=== PATIENT | male | born 1940 | race Caucasian/White ===

== ENCOUNTER 2018-02-06 12:29 | Observation (INO) | payer MEDICARE, BC ==
[2018-02-06 13:10] LABS: #Eosinphils 0.2 thou/uL (0.0-0.7); #Lymphocytes 1.3 thou/uL (1.20-3.40); #Monocytes 0.8 thou/uL (0.11-0.59); #Neutrophils 7.8 thou/uL (1.40-6.50); %Basophils 0.2 % (0.0-1.0); %Eosinophils 2.1 % (0.0-10.0); %Lymphocytes 12.4 % (21.0-51.0); %Neutrophils 77.3 % (42.0-75.0); Hemoglobin 14.6 g/dL (14.0-18.0); Mean Corpuscular HGB CONC 34.7 g/dL (32.0-36.0); Mean Corpuscular Hemoglobin 33.7 pg (27.0-31.0); Mean Corpuscular Volume 97.3 fL (78.0-98.0); Mean Platelet Volume 5.5 fL (7.4-10.4); Platelet Count 183 thou/uL (130-400); RBC Distribution Width 11.7 % (11.5-14.5); Red Blood Cell (RBC) Count 4.34 mill/uL (4.70-6.10)
[2018-02-06 13:31] LABS: ALT (SGPT) Less than 7 U/L (8-55); AST (SGOT) 15 U/L (5-34); Albumin 4.2 g/dL (3.4-4.8); Alkaline Phosphatase 98 U/L (40-150); Anion Gap 9 mmol/L (10-20); BUN (Urea Nitrogen) 21 mg/dL (8.4-25.7); Bilirubin, Total 0.7 mg/dL (0.2-1.2); Calc. Creatinine Clearance 0 mL/min (70-130); Calcium 8.9 mg/dL (7.8-10.44); Carbon Dioxide 28 mmol/L (23-31); Chloride 97 mmol/L (98-107); Estimated GFR-MDRD 57; Globulin 2.8 g/dL (2.4-3.5); Glucose 108 mg/dL (83-110); Potassium 4.4 mmol/L (3.5-5.1); Sodium 130 mmol/L (136-145)
[2018-02-06 13:36] LABS: Troponin I Less than 0.010 ng/mL (< 0.028)
--- NOTE | 2018-02-06 13:53 | RAD ---
CHEST 2 VIEWS: HISTORY: Cough. Low blood pressure. COMPARISON: Chest radiograph 2013. FINDINGS: There is a dual-lead cardiac pacer. No focal airspace consolidation, pneumothorax, or effusion. The re appears to be a thoracolumbar junction and compression deformity at either T12 or L1. IMPRESSION: 1. Further height loss of the L1 compression deformity from the 07/09/16 CT exam. 2. No acute intrathoracic abnormality. POS: [facility]
[2018-02-06 14:35] LABS: Bilirubin Negative (Negative); Blood, Urine Negative (Negative); Clarity CLEAR (Clear); Glucose, Urine (Dipstick) Negative (Negative); Leukocyte Small (Negative); Nitrite Negative (Negative); Protein, Urine (Dipstick) Negative (Neg-Trace); Urobilinogen 0.2 mg/dL (0.2-1.0)
[2018-02-06 14:36] LABS: Bacteria/HPF None Seen HPF (None Seen); Hyaline Casts/LPF 0-3 HYALINE CAST LPF (0-3 Hyaline); RBC/HPF 0-3 HPF (0-3); Squamous Epithelial 0-3 HPF (0-3); WBC/HPF 0-3 HPF (0-3)
[2018-02-06] MEDS ORDERED: Azithromycin 500 MG VIAL ONE (15:43)
[2018-02-06] MEDS ORDERED: Acetaminophen 325 MG TAB PO PRN (16:41)
[2018-02-06 17:03] VITALS: BMI 29.0
[2018-02-06] MEDS: Sodium Chloride 0.45% 1,000 ML IV SCH (18:03)
[2018-02-06] MEDS ORDERED: cloNIDine 0.1 MG TAB PO PRN (20:21)
[2018-02-06] MEDS ORDERED: hydrALAZINE 20 MG/ML VIAL SLOW IVP PRN (20:21)
[2018-02-06] MEDS: Primidone 50 MG TAB PO SCH (20:58)
[2018-02-06] MEDS: Carbidopa/Levodopa 25-100 mg Tablet PO SCH (20:59)
[2018-02-06] MEDS: Magnesium Oxide 250 MG TAB PO SCH (20:59)
[2018-02-06] MEDS: Venlafaxine HCl XR 75 MG CAP PO SCH (20:59)
[2018-02-06] MEDS ORDERED: Non-Formulary Item 1 EACH (Fluticasone/Salmeterol [Advair Diskus 250/50] 1 INH) IH SCH (21:00)
[2018-02-06] MEDS ORDERED: Atorvastatin Calcium 20 MG TAB PO SCH (21:00)
[2018-02-07] MEDS: Sodium Chloride 0.45% 1,000 ML IV SCH (04:09)
[2018-02-07 05:01] LABS: #Basophils 0.1 thou/uL (0.0-0.2); #Eosinphils 0.4 thou/uL (0.0-0.7); #Lymphocytes 1.4 thou/uL (1.20-3.40); #Monocytes 0.7 thou/uL (0.11-0.59); #Neutrophils 4.9 thou/uL (1.40-6.50); %Basophils 1.2 % (0.0-1.0); %Eosinophils 5.9 % (0.0-10.0); %Monocytes 9.9 % (0.0-10.0); %Neutrophils 64.9 % (42.0-75.0); Hemoglobin 14.4 g/dL (14.0-18.0); Mean Corpuscular HGB CONC 34.4 g/dL (32.0-36.0); Mean Corpuscular Hemoglobin 33.3 pg (27.0-31.0); Mean Platelet Volume 5.5 fL (7.4-10.4); Platelet Count 178 thou/uL (130-400); RBC Distribution Width 11.7 % (11.5-14.5); Red Blood Cell (RBC) Count 4.31 mill/uL (4.70-6.10); White Blood Cell (WBC) Count 7.5 thou/uL (4.8-10.8)
[2018-02-07 05:06] LABS: Anion Gap 10 mmol/L (10-20); BUN (Urea Nitrogen) 18 mg/dL (8.4-25.7); Calc. Creatinine Clearance 86 mL/min (70-130); Carbon Dioxide 26 mmol/L (23-31); Chloride 102 mmol/L (98-107); Estimated GFR-MDRD 76; Glucose 96 mg/dL (83-110); Potassium 4.6 mmol/L (3.5-5.1); Sodium 133 mmol/L (136-145)
[2018-02-07] MEDS ORDERED: Mometasone/Formoterol 120 PUFF INHALER INH SCH (06:30)
[2018-02-07 08:12] VITALS: BP 138/63; TEMP 98
[2018-02-07] MEDS: Primidone 50 MG TAB PO SCH (08:29)
[2018-02-07] MEDS: Venlafaxine HCl XR 75 MG CAP PO SCH (08:29)
[2018-02-07] MEDS: Magnesium Oxide 250 MG TAB PO SCH (08:29)
[2018-02-07] MEDS: Carbidopa/Levodopa 25-100 mg Tablet PO SCH (08:30)
[2018-02-07] MEDS ORDERED: ALPRAZolam 0.5 MG TAB PO PRN (08:52)
[2018-02-07] MEDS ORDERED: HYDROcodone/Acetaminophen 5/325 mg Tablet PO PRN (08:52)
[2018-02-07] MEDS ORDERED: traMADol HCl 50 MG TAB PO PRN (08:52)
[2018-02-07] MEDS ORDERED: Finasteride 5 MG TAB PO SCH (09:00)
[2018-02-07] MEDS ORDERED: MOMETASONE FUROATE EA NARE SCH (09:00)
[2018-02-07] MEDS ORDERED: Nitroglycerin 0.4 MG TAB (25 Tab Bottle) SL SCH (09:00)
[2018-02-07] MEDS ORDERED: Clopidogrel Bisulfate 75 MG TAB PO SCH (09:00)
[2018-02-07] MEDS ORDERED: Metoprolol Tartrate 25 MG TAB PO SCH (09:00)
[2018-02-07] MEDS ORDERED: Venlafaxine HCl XR 75 MG CAP PO SCH (09:00)
[2018-02-07] MEDS ORDERED: Valsartan 80 MG TAB PO SCH (09:00)
[2018-02-07] MEDS ORDERED: [UNRECOGNIZED DRUG - REMARK] EA NARE SCH (09:00)
[2018-02-07] MEDS ORDERED: Fluticasone Propionate Nasal Spray 16 gm Bottle NASAL SCH (09:00)
--- NOTE | 2018-02-07 09:00 | HP ---
CHIEF COMPLAINT: Cough. HISTORY OF PRESENT ILLNESS: This patient is a 71-year-old male who presented via the emergency depar tment complaining of a cough. Patient reports that for 3 days, he has had a cough that has been prod uctive of a thick yellow sputum. He has had no associated fevers, chills, shortness of breath, or ch est pain. He denies any ill contacts. He has had some sinus pressure and drainage. Patient present ed to his PCP, Dr. Price today. At the office, the patient's blood pressure was documented at 80/5 0. The patient was subsequently referred to the emergency department. The patient reports that he h as had some history of orthostatic hypotension for about 15 years. He states he was diagnosed with P arkinson's disease about 3 years ago. REVIEW OF SYSTEMS: Notable for poor sleep associated with cough. Some decreased hearing associated with some chronic auditory deficits. He tends toward constipation and he admits to tingling in his f eet and nocturia x2. Other than that 10-system review was negative except for those things mentioned in history of present illness. PAST MEDICAL HISTORY: Parkinson's disease, coronary artery disease, BPH, kidney stone, hypertension, hyperlipidemia, psoriasis, and depression. PAST SURGICAL HISTORY: Coronary artery bypass, pacemaker placement, and right carotid endarterectomy . FAMILY HISTORY: Notable for heart disease in both parents. Father at 63. Mother in her 8 0s. SOCIAL HISTORY: Patient quit smoking 30 years ago. Denies alcohol or drugs. He is and his would be his surrogate decision maker. He is FULL CODE. ALLERGIES: None. CURRENT MEDICATIONS: As of yet not reviewed or not obtained in medical record. PHYSICAL EXAMINATION: VITAL SIGNS: Temperature 97.9, pulse 76, respirations 20, O2 sat 100% on room air, BP 158/79. GENERAL APPEARANCE: Age appropriate male. He is in no distress. He is awake, alert, oriented, very pleasant, cooperative. HEENT: PERRL. No OP lesions. No sinus tenderness to palpation. NECK: Supple and symmetric without lymphadenopathy, JVD, or bruits. CARDIOVASCULAR: Regular rate and rhythm without murmurs. LUNGS: Clear bilaterally with exception of very minimal rales at the right base. ABDOMEN: Soft, nontender, nondistended, positive bowel sounds. EXTREMITIES: Warm and dry. IMPRESSION AND PLAN: 1. Hypotension. Patient had episode of hypotension at his physician's office. He has received some modest hydration. BP now is up at 158/79. We will continue with some hydration and monitoring the blood pressure. 2. Likely bronchitis. We will reevaluate a chest x-ray in the morning after hydration. He received a dose of Rocephin and azithromycin. We will not initiate further IV antibiotics until we obtain a chest x-ray. 3. Chronic Parkinson's disease. We will continue with his usual home medication regimen. 4. History of coronary artery disease. Again, we will continue with his usual treatments for heart disease, hypertension, hyperlipidemia.
--- NOTE | 2018-02-07 10:31 | RAD ---
CHEST PA AND LATERAL: HISTORY: A 77-year-old male with a history of cough. FINDINGS: Postop midline sternotomy and left ICD changes. Monitor leads overlie the chest. There are some inc reased linear and interstitial markings in the bases, possibly some chronic lung change or minimal barros bsegmental atelectasis, although I feel this is stable compared to the 02/06/18 study. No new conflue nt process. Stable L1 compression. IMPRESSION: Stable increased linear and interstitial changes in the lung bases probably representing some subsegm ental atelectasis or chronic change unchanged from 02/06/18. Compression changes of what appears to b e L1. POS: [facility]
--- NOTE | 2018-02-07 20:06 | DIS ---
DATE OF ADMISSION: 02/06/2018 DATE OF DISCHARGE: 02/07/2018 DISCHARGE DIAGNOSES: 1. Bronchitis. 2. Hypotension. 3. Parkinson's disease. HISTORY: This patient is a 77-year-old male with a history of Parkinson's disease and a longer histo ry of orthostatic hypotension. The patient presented to his primary care provider's office on the da y of admission with a 3-day history of productive cough with thick yellow sputum. The patient was no malgorzata to have a blood pressure at that time of 80/50. He was subsequently referred to the emergency de partment. In the emergency department, the patient's vital signs were stable and his blood pressure was in the normal range. His exam did reveal some right-sided rales; however, chest x-ray was negati ve. His sodium was slightly low at 130, but otherwise his white count was normal and the remainder o f his labs was unremarkable. HOSPITAL COURSE: The patient was placed in observation. Overnight, he was modestly hydrated. He co ntinued to have some cough which he felt was actually slightly more productive, but thinner and in hi s mind somewhat of an improvement. A repeat chest x-ray only revealed some stable interstitial olson es representing subsegmental atelectasis or chronic change, but unchanged from the previous exam. Th ere was also some concern for possible L1 compression fracture. This appeared stable and not new. T he patient felt well in general. He remained afebrile and his vitals were stable. PHYSICAL EXAMINATION: VITAL SIGNS: At the time of discharge, temperature 98, pulse 70, respirations 16, O2 sat 96% on room air, blood pressure 138/63. GENERAL: The patient is awake, alert, oriented, and pleasant. HEART: Regular rate and rhythm without murmurs. He continues to have some rales in the right lung e xam, but sounds more upper airway. ABDOMEN: Soft, nontender, nondistended. EXTREMITIES: Warm and dry. LABORATORY DATA: On the day of discharge, white count 7.5, hemoglobin 14.4, sodium is up to 133, pot assium 4.6, chloride 102, BUN is 18, creatinine 0.96 and blood cultures remained negative. DISPOSITION: The patient will be discharged to home. DISCHARGE MEDICATIONS: He will continue with all of his usual home medications to include Mysoline, tramadol, prednisone, venlafaxine, Nasacort, magnesium, [place], Advair Diskus, Flonase, Xanax, Effexor XR, Diovan, Protonix, Nitrostat, Nasonex, Lopressor, Proscar, Plavix, Sinemet, Lipitor, aspirin and he will also be on oral Levaquin 500 mg 1 p.o. q. day. DISCHARGE INSTRUCTION: He is to have a regular diet and activity level. He is to follow up with Dr. Price next week. He can return to the emergency department should he have any problem prior to th at time.
[2018-02-08] MEDS ORDERED: predniSONE 20 MG TAB PO SCH (08:00)
[2018-02-08] MEDS ORDERED: Venlafaxine HCl XR 75 MG CAP PO SCH (09:00)
[2018-02-08] MEDS ORDERED: Fluticasone Propionate Nasal Spray 16 gm Bottle NASAL SCH (09:00)
== END 2018-02-07 12:06 | disposition home or self-care (01) ==
LOC: ERS 12:29 → 2SW 16:56
PROVIDERS: ADMIT Internal Medicine; ATTEND Internal Medicine
DX: J40 Bronchitis, not specified as acute or chronic (principal); I95.9 Hypotension, unspecified; G20 Parkinson's disease; I10 Essential (primary) hypertension; E78.5 Hyperlipidemia, unspecified; I25.10 Atherosclerotic heart disease of native coronary artery without angina pectoris; F32.9 Major depressive disorder, single episode, unspecified; Z87.891 Personal history of nicotine dependence; Z79.899 Other long term (current) drug therapy
CPT/HCPCS: 71046 ×2; 80048; 80053; 82553; 83605; 83880; 84484; 85025 ×2; 87040; 93005; 96361 ×2; 96365; 99285; G0378; 36415; 81003; 81015; J0456

== ENCOUNTER 2019-03-13 07:26 | Outpatient (CLI) | payer MEDICARE, BC ==
--- NOTE | 2019-03-13 12:18 | CT ---
CT OF THE ABDOMEN AND PELVIS WITHOUT IV CONTRAST: INDICATION: An 79-year-old with renal lithiasis. COMPARISON: Noncontrast CT of the abdomen and pelvis dated 02/01/2017. FINDINGS: There is a small sub-4 mm pulmonary nodule within the right upper lobe which is stable and likely veronica ign. There is a calcified granuloma in the right lower lobe. There is mild subsegmental volume loss within both lower lobes with some areas of peripheral interstitial fibrosis and mild bronchiectasis. The unopacified liver, spleen, pancreas, and adrenal glands are normal-appearing. The staghorn calcu misael involving the lower pole of the left kidney now measures 1.1 cm, which his stable to the prior ex amination. There is a 2 mm nonobstructing calculus within the inferior pole of the right kidney. No hydronephrosis is evident. No ureteral calculus is noted. There are moderate calcifications involving the abdominopelvic vasculature. There is a moderate amount of retained stool within the colon. The prominent compression abnormality involving L1 demonstrates some interval healing from the compar oscar study. There is some mild retropulsion of bone fragments from the posterior superior margin of the L1 fracture that causes some mild osseous neural foraminal narrowing. No acute fracture is evide nt. There is diffuse osteopenia. IMPRESSION: 1. Stable staghorn calculus involving the inferior pole of the left kidney. New 2 mm nonobstructing calculus involving the inferior pole of the right kidney. 2. Interval healing of a severe L1 compression fracture with mild osseous central canal narrowing at the superior aspect of the L1 vertebral level. There is diffuse osteopenia. 3. Mild bibasilar scarring and bronchiectasis. 4. A small amount of retained stool within the colon. POS: [facility]
== END 2019-03-13 07:27 | disposition home or self-care (01) ==
LOC: CT 07:26
PROVIDERS: ATTEND Urology
DX: N20.0 Calculus of kidney (principal); M48.061 Spinal stenosis, lumbar region without neurogenic claudication; M48.56XD Collapsed vertebra, not elsewhere classified, lumbar region, subsequent encounter for fracture with routine healing; J47.9 Bronchiectasis, uncomplicated; J98.4 Other disorders of lung; K59.00 Constipation, unspecified; M85.80 Other specified disorders of bone density and structure, unspecified site
CPT/HCPCS: 74176

== ENCOUNTER 2020-02-17 15:31 | Outpatient (CLI) | payer MEDICARE, BC ==
--- NOTE | 2020-02-17 16:02 | ULT ---
RENAL ULTRASOUND: 02/17/20 INDICATIONS: Renal stones. BPH. FINDINGS: Both kidneys are imaged. No hydronephrosis. Right kidney measures 9.8 cm length. The left kidney saturnino ures 10.6 cm length. Cortical thickness and echogenicity appears normally preserved. Urinary bladder is mildly distended. Prevoid bladder volume recorded at 383 mL. Postvoid bladder volu me recorded at 59 mL. IMPRESSION: Unremarkable renal ultrasound. POS: [facility]
--- NOTE | 2020-02-17 16:03 | RAD ---
Abdomen one view HISTORY: Renal stone. COMPARISON: 07/13/2019. FINDINGS: Large amount of stool is apparent throughout the colon and rectum. There are prominent dege nerative changes lumbar spine. Prominent compression of the L1 vertebra is apparent. Renal outlines are predominantly obscured. An irregular shaped well-circumscribed calcification measu ring up to 1.6 cm projects over the inferior pole of the left renal shadow and is unchanged in appearance compared to 07/06/2019 radiograph. Vascular calcifications project over the pelvis. IMPRESSION : Left renal calculus appears stable compared to 07/06/2019. Constipation.
== END 2020-02-17 15:32 | disposition home or self-care (01) ==
LOC: BICULT 15:31
PROVIDERS: ATTEND Urology
DX: N20.0 Calculus of kidney (principal); N40.1 Benign prostatic hyperplasia with lower urinary tract symptoms; K59.00 Constipation, unspecified
CPT/HCPCS: 74018; 76770

== ENCOUNTER 2020-04-11 09:44 | Outpatient (CLI) | payer MEDICARE, BC ==
[~2020-04-11 09:44] MED LIST: Iopamidol-370 76% 500 ML 1 ML ONE
--- NOTE | 2020-04-11 13:22 | CT ---
CT OF THE ABDOMEN AND PELVIS WITH AND WITHOUT IV CONTRAST: INDICATION: History of elevated PSA and renal stones with back pain. COMPARISON: Prior CT of the abdomen and pelvis without contrast dated March 13, 2019. FINDINGS: The nonobstructing calculus involving the inferior pole of the left kidney measures 1 cm in size whic h is stable to the prior exam. There are 2 separate 2.5 mm calculi involving the inferior pole of th e right kidney. No solid renal lesion is evident. No gross urothelial lesion is identified. There is mild bronchiectasis and scarring involving both lower lobes. No focal hepatic lesion is evident. The gallbladder, pancreas, and adrenal glands are normal-appeari ng. The spleen is normal-appearing. No free fluid or enlarged lymph nodes are evident. There is scattered colonic diverticulosis. The small bowel is of normal caliber. The appendix is no t definitely seen. No free fluid is evident. The rectum and perirectal soft tissues are unremarkabl e-appearing. There is a fat-containing left inguinal hernia. There is scattered degenerative and osteoarthritic change. There is a compression abnormality involv ing L1 which is stable. No new acute fracture is evident. IMPRESSION: 1. Stable bilateral nephrolithiasis. 2. No gross focal renal lesion or hydronephrosis demonstrated. No gross urothelial lesion is eviden t. 3. Stable mild interstitial scarring involving both lower lobes with bronchiectasis. 4. Colonic diverticulosis. 5. Stable compression abnormality of L1. POS: [facility]
== END 2020-04-11 09:45 | disposition home or self-care (01) ==
LOC: BICCT 09:44
PROVIDERS: ATTEND Urology
DX: N20.0 Calculus of kidney (principal); R97.20 Elevated prostate specific antigen [PSA]; N40.1 Benign prostatic hyperplasia with lower urinary tract symptoms; N13.8 Other obstructive and reflux uropathy; R85.618 Other abnormal cytological findings on specimens from anus; K57.30 Diverticulosis of large intestine without perforation or abscess without bleeding; J47.9 Bronchiectasis, uncomplicated; J98.4 Other disorders of lung; M43.8X6 Other specified deforming dorsopathies, lumbar region
CPT/HCPCS: 74178; Q9967

== ENCOUNTER 2020-09-21 17:20 | Inpatient (IN) | payer MEDICARE, BC ==
[2020-09-21 18:06] LABS: #Lymphocytes 0.2 thou/uL (1.20-3.40); #Monocytes 0.3 thou/uL (0.11-0.59); %Basophils 0.1 % (0.0-1.0); %Eosinophils 0.4 % (0.0-10.0); %Lymphocytes 2.5 % (21.0-51.0); %Monocytes 3.7 % (0.0-10.0); %Neutrophils 93.3 % (42.0-75.0); Hemoglobin 14.3 g/dL (14.0-18.0); Mean Corpuscular HGB CONC 33.6 g/dL (32.0-36.0); Mean Corpuscular Hemoglobin 33.6 pg (27.0-31.0); Mean Platelet Volume 6.2 fL (7.4-10.4); Platelet Count 159 thou/uL (130-400); RBC Distribution Width 11.4 % (11.5-14.5); Red Blood Cell (RBC) Count 4.25 mill/uL (4.70-6.10); White Blood Cell (WBC) Count 7.5 thou/uL (4.8-10.8)
[2020-09-21 18:41] LABS: ALT (SGPT) 17 U/L (8-55); AST (SGOT) 14 U/L (5-34); Albumin 3.6 g/dL (3.4-4.8); Alkaline Phosphatase 84 U/L (40-110); Anion Gap 15 mmol/L (10-20); BUN (Urea Nitrogen) 29 mg/dL (8.4-25.7); Bilirubin, Total 0.6 mg/dL (0.2-1.2); Calc. Creatinine Clearance 0 mL/min (70-130); Calcium 8.5 mg/dL (7.8-10.44); Carbon Dioxide 22 mmol/L (23-31); Chloride 102 mmol/L (98-107); Globulin 2.4 g/dL (2.4-3.5); Glucose 146 mg/dL (83-110); Lipase 27 U/L (8-78); Potassium 4.3 mmol/L (3.5-5.1); Sodium 135 mmol/L (136-145)
[2020-09-21] MEDS ORDERED: Morphine 4 MG/ML VIAL ONE ×2 (19:16→20:01)
[2020-09-21] MEDS ORDERED: Ondansetron PF 4 MG/2 ML Vial ONE ×2 (19:16→21:35)
[2020-09-21 19:53] LABS: Bacteria/HPF None Seen HPF (None Seen); Bilirubin Negative (Negative); Blood, Urine Negative (Negative); Clarity Clear (Clear); Glucose, Urine (Dipstick) Normal (Negative); Ketone, Urine Negative (Negative); Leukocyte 250 Leu/uL (Negative); Nitrite Negative (Negative); Protein, Urine (Dipstick) Negative (Neg-Trace); RBC/HPF 0-3 HPF (0-3); Specific Gravity, Urine 1.041 (1.002-1.036); Squamous Epithelial 0-3 HPF (0-3); Urobilinogen Normal mg/dL (Less than 2); pH, Urine 6.5 (5.0-9.0)
[2020-09-21] MEDS ORDERED: cefTRIAXone\\ROCEPHIN 1 GM VIAL ONE (20:35)
[2020-09-21] MEDS ORDERED: Sodium Chloride 0.9% 1,000 ML IV SCH (23:45)
[2020-09-22 00:19] VITALS: BMI 29.8
[2020-09-22] MEDS ORDERED: Simethicone Chewable 80 MG TAB PO SCH (03:00)
[2020-09-22] MEDS ORDERED: ALPRAZolam 0.5 MG TAB PO PRN (04:49)
[2020-09-22] MEDS ORDERED: Lidocaine 2% Viscous Solution 10 ML, Aluminum & Magnesium Hydroxide 30 ML SSW SCH (05:15)
[2020-09-22 05:38] LABS: #Lymphocytes 0.6 thou/uL (1.20-3.40); #Monocytes 0.4 thou/uL (0.11-0.59); #Neutrophils 7.5 thou/uL (1.40-6.50); %Basophils 0.1 % (0.0-1.0); %Eosinophils 0.3 % (0.0-10.0); %Lymphocytes 6.8 % (21.0-51.0); %Monocytes 4.7 % (0.0-10.0); %Neutrophils 88.2 % (42.0-75.0); Hemoglobin 13.3 g/dL (14.0-18.0); Mean Corpuscular HGB CONC 34.1 g/dL (32.0-36.0); Mean Corpuscular Hemoglobin 34.6 pg (27.0-31.0); Mean Platelet Volume 6.7 fL (7.4-10.4); Platelet Count 153 thou/uL (130-400); RBC Distribution Width 11.5 % (11.5-14.5); Red Blood Cell (RBC) Count 3.85 mill/uL (4.70-6.10); White Blood Cell (WBC) Count 8.5 thou/uL (4.8-10.8)
[2020-09-22 05:43] LABS: SARS-CoV-2 PCR by NAA Not Detected (NotDetected)
[2020-09-22 05:57] LABS: Anion Gap 13 mmol/L (10-20); BUN (Urea Nitrogen) 28 mg/dL (8.4-25.7); Calc. Creatinine Clearance 95 mL/min (70-130); Calcium 7.6 mg/dL (7.8-10.44); Carbon Dioxide 20 mmol/L (23-31); Chloride 106 mmol/L (98-107); Glucose 122 mg/dL (83-110); Potassium 4.2 mmol/L (3.5-5.1); Sodium 135 mmol/L (136-145)
[2020-09-22] MEDS: Clopidogrel Bisulfate 75 MG TAB PO SCH (09:17)
[2020-09-22] MEDS: Aspirin Chewable 81 MG TAB PO SCH (09:17)
[2020-09-22] MEDS: Losartan 25 MG TAB PO SCH (09:17)
[2020-09-22] MEDS: Venlafaxine HCl XR 75 MG CAP PO SCH ×2 (09:18→20:05)
[2020-09-22] MEDS: Finasteride 5 MG TAB PO SCH (09:18)
[2020-09-22] MEDS: Carbidopa/Levodopa 25-100 mg Tablet PO SCH ×3 (09:18→20:05)
[2020-09-22] MEDS: Primidone 50 MG TAB PO SCH ×2 (09:19→20:05)
[2020-09-22] MEDS: Ondansetron PF 4 MG/2 ML Vial IVP PRN ×2 (09:31→16:10)
[2020-09-22 13:34] LABS: #Lymphocytes 0.5 thou/uL (1.20-3.40); #Monocytes 0.4 thou/uL (0.11-0.59); #Neutrophils 6.5 thou/uL (1.40-6.50); %Basophils 0.2 % (0.0-1.0); %Eosinophils 0.2 % (0.0-10.0); %Lymphocytes 6.7 % (21.0-51.0); %Monocytes 5.6 % (0.0-10.0); %Neutrophils 87.2 % (42.0-75.0); Hemoglobin 13.1 g/dL (14.0-18.0); Mean Corpuscular HGB CONC 34.1 g/dL (32.0-36.0); Mean Corpuscular Hemoglobin 34.5 pg (27.0-31.0); Mean Platelet Volume 6.1 fL (7.4-10.4); Platelet Count 148 thou/uL (130-400); RBC Distribution Width 11.4 % (11.5-14.5); Red Blood Cell (RBC) Count 3.79 mill/uL (4.70-6.10); White Blood Cell (WBC) Count 7.4 thou/uL (4.8-10.8)
[2020-09-22] MEDS: Lactated Ringer's 1,000 ML IV SCH (14:16)
[2020-09-22] MEDS: Acetaminophen 325 MG TAB PO PRN (14:16)
[2020-09-22] MEDS: Atorvastatin Calcium 20 MG TAB PO SCH (20:04)
[2020-09-22] MEDS: Silodosin 4 MG CAP PO SCH (20:05)
[2020-09-22] MEDS: Zonisamide 25 MG CAP PO SCH (20:05)
[2020-09-22] MEDS: cefTRIAXone\\ROCEPHIN 1 GM in Sodium Chloride 0.9% 100 ML IVPB SCH (20:06)
[2020-09-23 05:53] LABS: #Eosinphils 0.1 thou/uL (0.0-0.7); #Lymphocytes 0.9 thou/uL (1.20-3.40); #Monocytes 0.7 thou/uL (0.11-0.59); #Neutrophils 5.4 thou/uL (1.40-6.50); %Basophils 0.1 % (0.0-1.0); %Eosinophils 1.6 % (0.0-10.0); %Monocytes 9.5 % (0.0-10.0); %Neutrophils 75.8 % (42.0-75.0); Hemoglobin 12.9 g/dL (14.0-18.0); Mean Corpuscular HGB CONC 34.3 g/dL (32.0-36.0); Mean Corpuscular Hemoglobin 34.9 pg (27.0-31.0); Mean Platelet Volume 6.3 fL (7.4-10.4); Platelet Count 135 thou/uL (130-400); RBC Distribution Width 11.6 % (11.5-14.5); Red Blood Cell (RBC) Count 3.71 mill/uL (4.70-6.10); White Blood Cell (WBC) Count 7.1 thou/uL (4.8-10.8)
[2020-09-23] MEDS: Lactated Ringer's 1,000 ML IV SCH ×2 (06:08→18:29)
[2020-09-23 06:15] LABS: Anion Gap 13 mmol/L (10-20); BUN (Urea Nitrogen) 23 mg/dL (8.4-25.7); Calc. Creatinine Clearance 101 mL/min (70-130); Calcium 7.6 mg/dL (7.8-10.44); Carbon Dioxide 23 mmol/L (23-31); Chloride 107 mmol/L (98-107); Glucose 81 mg/dL (83-110); Potassium 3.8 mmol/L (3.5-5.1); Sodium 139 mmol/L (136-145)
[2020-09-23] MEDS: Clopidogrel Bisulfate 75 MG TAB PO SCH (09:54)
[2020-09-23] MEDS: Losartan 25 MG TAB PO SCH (09:54)
[2020-09-23] MEDS: Finasteride 5 MG TAB PO SCH (09:54)
[2020-09-23] MEDS: Aspirin Chewable 81 MG TAB PO SCH (09:54)
[2020-09-23] MEDS: Carbidopa/Levodopa 25-100 mg Tablet PO SCH ×3 (09:54→20:17)
[2020-09-23] MEDS: Venlafaxine HCl XR 75 MG CAP PO SCH ×2 (09:55→20:17)
[2020-09-23] MEDS: Primidone 50 MG TAB PO SCH ×2 (09:55→20:15)
[2020-09-23] MEDS: cefTRIAXone\\ROCEPHIN 1 GM in Sodium Chloride 0.9% 100 ML IVPB SCH (20:15)
[2020-09-23] MEDS: Zonisamide 25 MG CAP PO SCH (20:16)
[2020-09-23] MEDS: Atorvastatin Calcium 20 MG TAB PO SCH (20:17)
[2020-09-23] MEDS: Silodosin 4 MG CAP PO SCH (20:17)
[2020-09-24 06:28] LABS: #Eosinphils 0.3 thou/uL (0.0-0.7); #Lymphocytes 1.2 thou/uL (1.20-3.40); #Monocytes 0.7 thou/uL (0.11-0.59); #Neutrophils 5.1 thou/uL (1.40-6.50); %Basophils 0.2 % (0.0-1.0); %Eosinophils 3.5 % (0.0-10.0); %Lymphocytes 15.9 % (21.0-51.0); %Monocytes 9.8 % (0.0-10.0); %Neutrophils 70.6 % (42.0-75.0); Hemoglobin 12.1 g/dL (14.0-18.0); Mean Corpuscular HGB CONC 34.9 g/dL (32.0-36.0); Mean Corpuscular Hemoglobin 35.1 pg (27.0-31.0); Mean Platelet Volume 6.3 fL (7.4-10.4); Platelet Count 142 thou/uL (130-400); RBC Distribution Width 11.4 % (11.5-14.5); Red Blood Cell (RBC) Count 3.46 mill/uL (4.70-6.10); White Blood Cell (WBC) Count 7.2 thou/uL (4.8-10.8)
[2020-09-24 06:47] LABS: Anion Gap 14 mmol/L (10-20); BUN (Urea Nitrogen) 14 mg/dL (8.4-25.7); Calc. Creatinine Clearance 106 mL/min (70-130); Calcium 7.7 mg/dL (7.8-10.44); Carbon Dioxide 22 mmol/L (23-31); Chloride 106 mmol/L (98-107); Glucose 89 mg/dL (83-110); Potassium 3.8 mmol/L (3.5-5.1); Sodium 138 mmol/L (136-145)
[2020-09-24] MEDS: Lactated Ringer's 1,000 ML IV SCH ×2 (09:57→19:29)
[2020-09-24] MEDS: Aspirin Chewable 81 MG TAB PO SCH (09:58)
[2020-09-24] MEDS: Finasteride 5 MG TAB PO SCH (09:58)
[2020-09-24] MEDS: Venlafaxine HCl XR 75 MG CAP PO SCH ×2 (09:58→19:32)
[2020-09-24] MEDS: Losartan 25 MG TAB PO SCH (09:59)
[2020-09-24] MEDS: Clopidogrel Bisulfate 75 MG TAB PO SCH (10:00)
[2020-09-24] MEDS: Carbidopa/Levodopa 25-100 mg Tablet PO SCH ×3 (10:04→19:32)
[2020-09-24] MEDS: Primidone 50 MG TAB PO SCH ×2 (10:04→19:29)
[2020-09-24 11:37] LABS: Magnesium 1.9 mg/dL (1.6-2.6)
[2020-09-24 11:57] LABS: Phosphorus 1.5 mg/dL (2.3-4.7)
[2020-09-24] MEDS ORDERED: Potassium Phosphate 30 MMOL in Sodium Chloride 0.9% 250 ML 250 ML IVPB SCH (12:30)
[2020-09-24] MEDS ORDERED: Magnesium 2 GM/50 ML 2 GM in Premix Bag 1 BAG IVPB SCH (15:00)
[2020-09-24] MEDS: Zonisamide 25 MG CAP PO SCH (19:30)
[2020-09-24] MEDS: Atorvastatin Calcium 20 MG TAB PO SCH (19:32)
[2020-09-24] MEDS: Silodosin 4 MG CAP PO SCH (19:33)
[2020-09-24] MEDS: cefTRIAXone\\ROCEPHIN 1 GM in Sodium Chloride 0.9% 100 ML IVPB SCH (20:18)
[2020-09-24] MEDS: Polyethylene Glycol 3350 17 GM Packet PO SCH (20:18)
[2020-09-24] MEDS ORDERED: Polyethylene Glycol 3350 17 GM Packet PO SCH (21:00)
[2020-09-25 06:55] LABS: #Eosinphils 0.4 thou/uL (0.0-0.7); #Lymphocytes 1.3 thou/uL (1.20-3.40); #Monocytes 0.6 thou/uL (0.11-0.59); #Neutrophils 4.8 thou/uL (1.40-6.50); %Basophils 0.2 % (0.0-1.0); %Eosinophils 5.2 % (0.0-10.0); %Lymphocytes 18.4 % (21.0-51.0); %Monocytes 8.7 % (0.0-10.0); %Neutrophils 67.6 % (42.0-75.0); Hemoglobin 11.8 g/dL (14.0-18.0); Mean Corpuscular HGB CONC 34.2 g/dL (32.0-36.0); Mean Corpuscular Hemoglobin 34.1 pg (27.0-31.0); Mean Corpuscular Volume 99.9 fL (78.0-98.0); Mean Platelet Volume 6.3 fL (7.4-10.4); Platelet Count 155 thou/uL (130-400); RBC Distribution Width 11.4 % (11.5-14.5); Red Blood Cell (RBC) Count 3.46 mill/uL (4.70-6.10); White Blood Cell (WBC) Count 7.1 thou/uL (4.8-10.8)
[2020-09-25 07:12] LABS: Anion Gap 13 mmol/L (10-20); BUN (Urea Nitrogen) 11 mg/dL (8.4-25.7); Calc. Creatinine Clearance 109 mL/min (70-130); Calcium 7.7 mg/dL (7.8-10.44); Carbon Dioxide 22 mmol/L (23-31); Chloride 106 mmol/L (98-107); Glucose 100 mg/dL (83-110); Potassium 3.6 mmol/L (3.5-5.1); Sodium 137 mmol/L (136-145)
[2020-09-25 07:17] LABS: Phosphorus 2.4 mg/dL (2.3-4.7)
[2020-09-25] MEDS ORDERED: Potassium Chloride 20 MEQ TAB PO SCH (08:00)
[2020-09-25] MEDS: Carbidopa/Levodopa 25-100 mg Tablet PO SCH ×3 (08:38→20:31)
[2020-09-25] MEDS: Aspirin Chewable 81 MG TAB PO SCH (08:38)
[2020-09-25] MEDS: Polyethylene Glycol 3350 17 GM Packet PO SCH ×2 (08:39→20:30)
[2020-09-25] MEDS: Finasteride 5 MG TAB PO SCH (08:39)
[2020-09-25] MEDS: Primidone 50 MG TAB PO SCH ×2 (08:39→20:30)
[2020-09-25] MEDS: Venlafaxine HCl XR 75 MG CAP PO SCH ×2 (08:39→20:30)
[2020-09-25] MEDS: Losartan 25 MG TAB PO SCH (08:39)
[2020-09-25] MEDS: Clopidogrel Bisulfate 75 MG TAB PO SCH (08:39)
[2020-09-25] MEDS: Saccharomyces boulardii 250 MG CAP PO SCH (08:39)
[2020-09-25] MEDS: Lactated Ringer's 1,000 ML IV SCH ×2 (08:40→17:37)
[2020-09-25] MEDS: Senokot S 8.6-50 MG TAB PO SCH (20:29)
[2020-09-25] MEDS: Silodosin 4 MG CAP PO SCH (20:30)
[2020-09-25] MEDS: Atorvastatin Calcium 20 MG TAB PO SCH (20:31)
[2020-09-25] MEDS: Zonisamide 25 MG CAP PO SCH (20:32)
[2020-09-25] MEDS: cefTRIAXone\\ROCEPHIN 1 GM in Sodium Chloride 0.9% 100 ML IVPB SCH (20:33)
[2020-09-25] MEDS: Bisacodyl 10 MG SUPP PR SCH (20:33)
[2020-09-26 06:35] LABS: Anion Gap 13 mmol/L (10-20); BUN (Urea Nitrogen) 8 mg/dL (8.4-25.7); Calc. Creatinine Clearance 109 mL/min (70-130); Calcium 8.1 mg/dL (7.8-10.44); Carbon Dioxide 22 mmol/L (23-31); Chloride 103 mmol/L (98-107); Glucose 121 mg/dL (83-110); Magnesium 1.9 mg/dL (1.6-2.6); Phosphorus 2.8 mg/dL (2.3-4.7); Potassium 3.8 mmol/L (3.5-5.1); Sodium 134 mmol/L (136-145)
[2020-09-26] MEDS: Polyethylene Glycol 3350 17 GM Packet PO SCH ×2 (09:30→20:51)
[2020-09-26] MEDS: Carbidopa/Levodopa 25-100 mg Tablet PO SCH ×3 (09:31→20:50)
[2020-09-26] MEDS: Losartan 25 MG TAB PO SCH (09:31)
[2020-09-26] MEDS: Venlafaxine HCl XR 75 MG CAP PO SCH ×2 (09:31→20:50)
[2020-09-26] MEDS: Aspirin Chewable 81 MG TAB PO SCH (09:31)
[2020-09-26] MEDS: Saccharomyces boulardii 250 MG CAP PO SCH (09:31)
[2020-09-26] MEDS: Primidone 50 MG TAB PO SCH ×2 (09:31→20:51)
[2020-09-26] MEDS: Senokot S 8.6-50 MG TAB PO SCH ×2 (09:31→20:50)
[2020-09-26] MEDS: Clopidogrel Bisulfate 75 MG TAB PO SCH (09:32)
[2020-09-26] MEDS: Lactated Ringer's 1,000 ML IV SCH ×2 (12:53→15:51)
[2020-09-26] MEDS: cefTRIAXone\\ROCEPHIN 1 GM in Sodium Chloride 0.9% 100 ML IVPB SCH (20:50)
[2020-09-26] MEDS: Finasteride 5 MG TAB PO SCH (20:51)
[2020-09-26] MEDS: Atorvastatin Calcium 20 MG TAB PO SCH (20:51)
[2020-09-26] MEDS: Silodosin 4 MG CAP PO SCH (20:51)
[2020-09-26] MEDS: Zonisamide 25 MG CAP PO SCH (20:52)
[2020-09-26] MEDS: Bisacodyl 10 MG SUPP PR SCH (20:52)
[2020-09-27 07:16] LABS: Anion Gap 15 mmol/L (10-20); BUN (Urea Nitrogen) 13 mg/dL (8.4-25.7); Calc. Creatinine Clearance 100 mL/min (70-130); Calcium 8.1 mg/dL (7.8-10.44); Carbon Dioxide 21 mmol/L (23-31); Chloride 103 mmol/L (98-107); Glucose 127 mg/dL (83-110); Potassium 3.7 mmol/L (3.5-5.1); Sodium 135 mmol/L (136-145)
[2020-09-27] MEDS: Aspirin Chewable 81 MG TAB PO SCH (09:58)
[2020-09-27] MEDS: Losartan 25 MG TAB PO SCH (09:58)
[2020-09-27] MEDS: Senokot S 8.6-50 MG TAB PO SCH ×2 (09:58→20:03)
[2020-09-27] MEDS: Saccharomyces boulardii 250 MG CAP PO SCH (09:59)
[2020-09-27] MEDS: Carbidopa/Levodopa 25-100 mg Tablet PO SCH ×3 (09:59→20:03)
[2020-09-27] MEDS: Venlafaxine HCl XR 75 MG CAP PO SCH ×2 (09:59→20:03)
[2020-09-27] MEDS: Clopidogrel Bisulfate 75 MG TAB PO SCH (09:59)
[2020-09-27] MEDS: Primidone 50 MG TAB PO SCH ×2 (10:00→20:03)
[2020-09-27] MEDS: Polyethylene Glycol 3350 17 GM Packet PO SCH ×2 (10:02→20:04)
[2020-09-27] MEDS: Lactated Ringer's 1,000 ML IV SCH (16:14)
[2020-09-27] MEDS: Finasteride 5 MG TAB PO SCH (20:03)
[2020-09-27] MEDS: Atorvastatin Calcium 20 MG TAB PO SCH (20:03)
[2020-09-27] MEDS: Silodosin 4 MG CAP PO SCH (20:03)
[2020-09-27] MEDS: Zonisamide 25 MG CAP PO SCH (20:04)
[2020-09-27] MEDS: cefTRIAXone\\ROCEPHIN 1 GM in Sodium Chloride 0.9% 100 ML IVPB SCH (20:08)
[2020-09-28] MEDS: Senokot S 8.6-50 MG TAB PO SCH ×2 (08:42→21:35)
[2020-09-28] MEDS: Saccharomyces boulardii 250 MG CAP PO SCH (08:42)
[2020-09-28] MEDS: Aspirin Chewable 81 MG TAB PO SCH (08:42)
[2020-09-28] MEDS: Clopidogrel Bisulfate 75 MG TAB PO SCH (08:42)
[2020-09-28] MEDS: Polyethylene Glycol 3350 17 GM Packet PO SCH ×2 (08:42→21:36)
[2020-09-28] MEDS: Primidone 50 MG TAB PO SCH ×2 (08:42→21:35)
[2020-09-28] MEDS: Carbidopa/Levodopa 25-100 mg Tablet PO SCH ×3 (08:42→21:36)
[2020-09-28] MEDS: Venlafaxine HCl XR 75 MG CAP PO SCH ×2 (08:42→21:35)
[2020-09-28] MEDS: Losartan 25 MG TAB PO SCH (08:42)
[2020-09-28] MEDS: Acetaminophen 325 MG TAB PO PRN ×2 (08:42→21:34)
[2020-09-28] MEDS ORDERED: Colchicine 0.6 MG TAB PO SCH (15:00)
[2020-09-28] MEDS: Zonisamide 25 MG CAP PO SCH (21:33)
[2020-09-28] MEDS: Silodosin 4 MG CAP PO SCH (21:33)
[2020-09-28] MEDS: Atorvastatin Calcium 20 MG TAB PO SCH (21:35)
[2020-09-28] MEDS: Finasteride 5 MG TAB PO SCH (21:36)
[2020-09-29] MEDS ORDERED: Fleet Enema 133 ML BOT PR SCH (00:30)
[2020-09-29 09:27] LABS: Chloride 101 mmol/L (98-107); Potassium 3.7 mmol/L (3.5-5.1); Sodium 134 mmol/L (136-145)
[2020-09-29 09:28] LABS: Calcium 8.5 mg/dL (7.8-10.44); Glucose 100 mg/dL (83-110)
[2020-09-29 09:30] LABS: Anion Gap 12 mmol/L (10-20); Carbon Dioxide 25 mmol/L (23-31)
[2020-09-29 09:32] LABS: Calc. Creatinine Clearance 105 mL/min (70-130)
[2020-09-29 09:33] LABS: BUN (Urea Nitrogen) 16 mg/dL (8.4-25.7)
[2020-09-29] MEDS: Aspirin Chewable 81 MG TAB PO SCH (09:55)
[2020-09-29] MEDS: Senokot S 8.6-50 MG TAB PO SCH ×2 (09:56→21:07)
[2020-09-29] MEDS: Venlafaxine HCl XR 75 MG CAP PO SCH ×2 (09:56→21:08)
[2020-09-29] MEDS: Clopidogrel Bisulfate 75 MG TAB PO SCH (09:56)
[2020-09-29] MEDS: Colchicine 0.6 MG TAB PO SCH (09:56)
[2020-09-29] MEDS: Carbidopa/Levodopa 25-100 mg Tablet PO SCH ×3 (09:56→21:08)
[2020-09-29] MEDS: Polyethylene Glycol 3350 17 GM Packet PO SCH ×2 (09:56→21:09)
[2020-09-29] MEDS: Primidone 50 MG TAB PO SCH ×2 (09:56→21:08)
[2020-09-29] MEDS: Losartan 25 MG TAB PO SCH (09:56)
[2020-09-29] MEDS: Saccharomyces boulardii 250 MG CAP PO SCH (09:56)
[2020-09-29 17:52] LABS: CRP (Inflammatory) 17.47 mg/dL (= or < 0.5)
[2020-09-29] MEDS: Atorvastatin Calcium 20 MG TAB PO SCH (21:08)
[2020-09-29] MEDS: Finasteride 5 MG TAB PO SCH (21:08)
[2020-09-29] MEDS: Silodosin 4 MG CAP PO SCH (21:08)
[2020-09-29] MEDS: Zonisamide 25 MG CAP PO SCH (21:09)
[2020-09-30 07:43] LABS: Anion Gap 9 mmol/L (10-20); BUN (Urea Nitrogen) 19 mg/dL (8.4-25.7); Calc. Creatinine Clearance 95 mL/min (70-130); Calcium 8.6 mg/dL (7.8-10.44); Carbon Dioxide 29 mmol/L (23-31); Chloride 101 mmol/L (98-107); Glucose 102 mg/dL (83-110); Potassium 4.2 mmol/L (3.5-5.1); Sodium 135 mmol/L (136-145)
[2020-09-30] MEDS ORDERED: Lidocaine 1% (PF) 30 ML VIAL SC SCH (07:45)
[2020-09-30] MEDS: Carbidopa/Levodopa 25-100 mg Tablet PO SCH ×3 (09:34→21:11)
[2020-09-30] MEDS: Primidone 50 MG TAB PO SCH ×2 (09:34→21:11)
[2020-09-30] MEDS: Aspirin Chewable 81 MG TAB PO SCH (09:34)
[2020-09-30] MEDS: Colchicine 0.6 MG TAB PO SCH (09:35)
[2020-09-30] MEDS: Losartan 25 MG TAB PO SCH (09:35)
[2020-09-30] MEDS: Saccharomyces boulardii 250 MG CAP PO SCH (09:35)
[2020-09-30] MEDS: Venlafaxine HCl XR 75 MG CAP PO SCH ×2 (09:35→21:11)
[2020-09-30] MEDS: Clopidogrel Bisulfate 75 MG TAB PO SCH (09:35)
[2020-09-30] MEDS: Polyethylene Glycol 3350 17 GM Packet PO SCH ×2 (09:36→21:12)
[2020-09-30] MEDS: Senokot S 8.6-50 MG TAB PO SCH ×2 (09:36→21:12)
[2020-09-30 11:40] LABS: Synovial Fluid, Uric Acid 4.9 mg/dL (Not Available)
[2020-09-30 12:22] LABS: RBC Count-Automated (BF) 499 /cu.mm; WBC/Nucleated-Auto (BF) 2495 uL
[2020-09-30 12:29] LABS: BF Color Yellow; Body Fluid Source Synovial Fluid; Clarity Hazy (Clear); Tube # EDTA
[2020-09-30 13:51] LABS: BF Segmented Neutrophils 89 %; Cell Count Non Hematic 11 %
[2020-09-30] MEDS: Acetaminophen 325 MG TAB PO PRN (16:21)
[2020-09-30] MEDS: Atorvastatin Calcium 20 MG TAB PO SCH (21:11)
[2020-09-30] MEDS: Zonisamide 25 MG CAP PO SCH (21:11)
[2020-09-30] MEDS: Silodosin 4 MG CAP PO SCH (21:11)
[2020-09-30] MEDS: Finasteride 5 MG TAB PO SCH (21:11)
[2020-10-01] MEDS: Acetaminophen 325 MG TAB PO PRN (06:01)
[2020-10-01 06:27] LABS: Anion Gap 12 mmol/L (10-20); BUN (Urea Nitrogen) 17 mg/dL (8.4-25.7); Calc. Creatinine Clearance 109 mL/min (70-130); Calcium 8.7 mg/dL (7.8-10.44); Carbon Dioxide 22 mmol/L (23-31); Chloride 101 mmol/L (98-107); Glucose 97 mg/dL (83-110); Potassium 4.2 mmol/L (3.5-5.1); Sodium 131 mmol/L (136-145)
[2020-10-01] MEDS: Clopidogrel Bisulfate 75 MG TAB PO SCH (08:54)
[2020-10-01] MEDS: Losartan 25 MG TAB PO SCH (08:55)
[2020-10-01] MEDS: Saccharomyces boulardii 250 MG CAP PO SCH (08:55)
[2020-10-01] MEDS: Venlafaxine HCl XR 75 MG CAP PO SCH ×2 (08:55→20:59)
[2020-10-01] MEDS: Primidone 50 MG TAB PO SCH ×2 (08:55→20:59)
[2020-10-01] MEDS: Colchicine 0.6 MG TAB PO SCH ×2 (08:55→20:59)
[2020-10-01] MEDS: Aspirin Chewable 81 MG TAB PO SCH (08:55)
[2020-10-01] MEDS: Polyethylene Glycol 3350 17 GM Packet PO SCH ×2 (08:55→20:59)
[2020-10-01] MEDS: Carbidopa/Levodopa 25-100 mg Tablet PO SCH ×3 (08:55→20:58)
[2020-10-01] MEDS: Senokot S 8.6-50 MG TAB PO SCH ×2 (08:56→20:59)
[2020-10-01] MEDS ORDERED: Lidocaine 5% Patch TD SCH (18:00)
[2020-10-01] MEDS: Atorvastatin Calcium 20 MG TAB PO SCH (20:58)
[2020-10-01] MEDS: Finasteride 5 MG TAB PO SCH (20:58)
[2020-10-01] MEDS: Zonisamide 25 MG CAP PO SCH (20:59)
[2020-10-01] MEDS: Silodosin 4 MG CAP PO SCH (20:59)
[2020-10-02] MEDS ORDERED: Transdermal Patch Removal TOP SCH (06:00)
[2020-10-02 07:00] LABS: Anion Gap 16 mmol/L (10-20); BUN (Urea Nitrogen) 15 mg/dL (8.4-25.7); Calc. Creatinine Clearance 112 mL/min (70-130); Calcium 8.2 mg/dL (7.8-10.44); Carbon Dioxide 19 mmol/L (23-31); Chloride 102 mmol/L (98-107); Glucose 98 mg/dL (83-110); Potassium 4.6 mmol/L (3.5-5.1); Sodium 132 mmol/L (136-145)
[2020-10-02 07:32] VITALS: BP 133/75; TEMP 98.5
[2020-10-02] MEDS: Venlafaxine HCl XR 75 MG CAP PO SCH (09:04)
[2020-10-02] MEDS: Clopidogrel Bisulfate 75 MG TAB PO SCH (09:04)
[2020-10-02] MEDS: Carbidopa/Levodopa 25-100 mg Tablet PO SCH ×2 (09:05→14:31)
[2020-10-02] MEDS: Losartan 25 MG TAB PO SCH (09:05)
[2020-10-02] MEDS: Aspirin Chewable 81 MG TAB PO SCH (09:05)
[2020-10-02] MEDS: Colchicine 0.6 MG TAB PO SCH (09:05)
[2020-10-02] MEDS: Saccharomyces boulardii 250 MG CAP PO SCH (09:05)
[2020-10-02] MEDS: Primidone 50 MG TAB PO SCH (09:05)
[2020-10-02] MEDS: Senokot S 8.6-50 MG TAB PO SCH (09:06)
[2020-10-02] MEDS: Polyethylene Glycol 3350 17 GM Packet PO SCH (09:06)
== END 2020-10-02 14:56 | DRG 389 ==
LOC: ERS 17:20 → T4-A 22:01
PROVIDERS: ADMIT Internal Medicine; ATTEND Internal Medicine
PROC: 0S9C3ZX Drainage of Right Knee Joint, Percutaneous Approach, Diagnostic (ICD-10-PCS; principal; 2020-09-30)
DX: K56.7 Ileus, unspecified (principal); N30.00 Acute cystitis without hematuria; I25.10 Atherosclerotic heart disease of native coronary artery without angina pectoris; I10 Essential (primary) hypertension; E78.5 Hyperlipidemia, unspecified; I49.5 Sick sinus syndrome; G20 Parkinson's disease; Z79.82 Long term (current) use of aspirin; Z95.0 Presence of cardiac pacemaker; Z95.1 Presence of aortocoronary bypass graft; N20.0 Calculus of kidney; K57.90 Diverticulosis of intestine, part unspecified, without perforation or abscess without bleeding; B96.4 Proteus (mirabilis) (morganii) as the cause of diseases classified elsewhere; E83.39 Other disorders of phosphorus metabolism; E83.42 Hypomagnesemia; E87.6 Hypokalemia; M10.9 Gout, unspecified; M17.11 Unilateral primary osteoarthritis, right knee
CPT/HCPCS: 36415; 71045; 74018; 74019; 74177; 80048; 80053; 81003; 81015; 82271; 82945; 83605; 83690; 83735; 83880; 84100; 84157; 84484; 84550; 84560; 85025; 85060; 85652; 86140; 87070; 87077; 87086; 87186; 87205; 87635; 89051; 89060; 93005; 96365; 96375; J0696; J2001; J2270; J2405; J3475; J3490; J7050; Q9967; U0003; U0005

== ENCOUNTER 2021-03-20 19:11 | Emergency (ER) | payer MEDICARE, BC ==
[2021-03-20 20:11] LABS: #Eosinphils 0.1 thou/uL (0.0-0.7); #Lymphocytes 0.9 thou/uL (1.20-3.40); #Monocytes 0.7 thou/uL (0.11-0.59); #Neutrophils 3.1 thou/uL (1.40-6.50); %Basophils 0.8 % (0.0-1.0); %Eosinophils 1.1 % (0.0-10.0); %Lymphocytes 18.6 % (21.0-51.0); %Monocytes 14.6 % (0.0-10.0); %Neutrophils 64.9 % (42.0-75.0); Mean Corpuscular HGB CONC 34.2 g/dL (32.0-36.0); Mean Corpuscular Hemoglobin 34.1 pg (27.0-31.0); Mean Corpuscular Volume 99.8 fL (78.0-98.0); Mean Platelet Volume 6.5 fL (7.4-10.4); Platelet Count 154 thou/uL (130-400); RBC Distribution Width 11.8 % (11.5-14.5); White Blood Cell (WBC) Count 4.8 thou/uL (4.8-10.8)
[2021-03-20 20:31] LABS: Acetaminophen Less than 6.0 mcg/mL (10.0-30.0); Alcohol Less than 10 mg/dL (Less than 10); Salicylate Less than 8.0 mg/dL (15.0-30.0)
[2021-03-20 20:33] LABS: ALT (SGPT) 16 U/L (8-55); AST (SGOT) 118 U/L (5-34); Albumin 3.8 g/dL (3.4-4.8); Alkaline Phosphatase 105 U/L (40-110); Anion Gap 13 mmol/L (10-20); BUN (Urea Nitrogen) 17 mg/dL (8.4-25.7); Bilirubin, Total 0.3 mg/dL (0.2-1.2); Calc. Creatinine Clearance 0 mL/min (70-130); Calcium 8.8 mg/dL (7.8-10.44); Carbon Dioxide 26 mmol/L (23-31); Chloride 101 mmol/L (98-107); Globulin 2.8 g/dL (2.4-3.5); Glucose 98 mg/dL (83-110); Potassium 3.8 mmol/L (3.5-5.1); Protein, Total 6.6 g/dL (5.8-8.1); Sodium 136 mmol/L (136-145)
== END 2021-03-20 21:50 ==
LOC: ERS 19:11
DX: T48.4X1A Poisoning by expectorants, accidental (unintentional), initial encounter (principal); R05 Cough; I10 Essential (primary) hypertension; G20 Parkinson's disease; E78.5 Hyperlipidemia, unspecified; Z79.82 Long term (current) use of aspirin; Z79.899 Other long term (current) drug therapy
CPT/HCPCS: 36415; 71045; 80053; 80307; 84484; 85025; 93005

== ENCOUNTER 2021-12-12 10:26 | Emergency (ER) | payer MEDICARE, BC ==
[2021-12-12 11:49] LABS: #Eosinphils 0.2 thou/uL (0.0-0.7); #Lymphocytes 0.9 thou/uL (1.20-3.40); #Monocytes 0.4 thou/uL (0.11-0.59); #Neutrophils 4.2 thou/uL (1.40-6.50); %Eosinophils 3.2 % (0.0-10.0); %Lymphocytes 16.3 % (21.0-51.0); %Monocytes 6.5 % (0.0-10.0); %Neutrophils 73.9 % (42.0-75.0); Hemoglobin 14.5 g/dL (14.0-18.0); Mean Corpuscular HGB CONC 33.5 g/dL (32.0-36.0); Mean Corpuscular Hemoglobin 34.5 pg (27.0-31.0); Mean Platelet Volume 6.1 fL (7.4-10.4); Platelet Count 155 thou/uL (130-400); RBC Distribution Width 11.8 % (11.5-14.5); Red Blood Cell (RBC) Count 4.22 mill/uL (4.70-6.10); White Blood Cell (WBC) Count 5.6 thou/uL (4.8-10.8)
[2021-12-12 12:10] LABS: ALT (SGPT) 8 U/L (8-55); AST (SGOT) 14 U/L (5-34); Albumin 3.7 g/dL (3.4-4.8); Alkaline Phosphatase 191 U/L (40-110); Anion Gap 12 mmol/L (10-20); BUN (Urea Nitrogen) 17 mg/dL (8.4-25.7); Bilirubin, Total 0.4 mg/dL (0.2-1.2); Calc. Creatinine Clearance 0 mL/min (70-130); Calcium 8.7 mg/dL (7.8-10.44); Carbon Dioxide 28 mmol/L (23-31); Chloride 103 mmol/L (98-107); Globulin 2.3 g/dL (2.4-3.5); Glucose 123 mg/dL (83-110); Magnesium 2.1 mg/dL (1.6-2.6); Potassium 4.2 mmol/L (3.5-5.1); Sodium 139 mmol/L (136-145)
[2021-12-12] MEDS ORDERED: Bacitracin 1 PK ONE (12:53)
== END 2021-12-12 13:40 | disposition home or self-care (01) ==
LOC: ERS 10:26
DX: S09.90XA Unspecified injury of head, initial encounter (principal); S50.02XA Contusion of left elbow, initial encounter; S80.02XA Contusion of left knee, initial encounter; S60.221A Contusion of right hand, initial encounter; S60.512A Abrasion of left hand, initial encounter; I10 Essential (primary) hypertension; E78.5 Hyperlipidemia, unspecified; G20 Parkinson's disease; W18.12XA Fall from or off toilet with subsequent striking against object, initial encounter; Z95.0 Presence of cardiac pacemaker; Z79.01 Long term (current) use of anticoagulants; Z79.899 Other long term (current) drug therapy
CPT/HCPCS: 70450; 72125; 80053; 83735; 84484; 85025; 93005

== ENCOUNTER 2022-03-29 14:09 | Outpatient (CLI) | payer MEDICARE, BC | END 2022-03-29 14:10 | disposition home or self-care (01) | LOC: RAD 14:09 | PROVIDERS: ATTEND Nurse Practitioner Family | DX: N20.0 Calculus of kidney (principal) | CPT/HCPCS: 36415; 74018; 80053; 83036 ==

== ENCOUNTER 2022-04-01 20:52 | Inpatient (IN) | payer MEDICARE, BC ==
[2022-04-01 21:41] LABS: #Eosinphils 0.2 thou/uL (0.0-0.7); #Lymphocytes 1.4 thou/uL (1.20-3.40); #Monocytes 0.5 thou/uL (0.11-0.59); #Neutrophils 5.3 thou/uL (1.40-6.50); %Basophils 0.4 % (0.0-1.0); %Eosinophils 2.9 % (0.0-10.0); %Lymphocytes 18.8 % (21.0-51.0); %Monocytes 6.5 % (0.0-10.0); %Neutrophils 71.3 % (42.0-75.0); Hemoglobin 14.8 g/dL (14.0-18.0); Mean Corpuscular HGB CONC 32.5 g/dL (32.0-36.0); Mean Corpuscular Hemoglobin 33.1 pg (27.0-31.0); Mean Platelet Volume 6.3 fL (7.4-10.4); Platelet Count 185 thou/uL (130-400); RBC Distribution Width 11.9 % (11.5-14.5); Red Blood Cell (RBC) Count 4.48 mill/uL (4.70-6.10); White Blood Cell (WBC) Count 7.4 thou/uL (4.8-10.8)
[2022-04-01 22:05] LABS: Bilirubin Negative (Negative); Blood, Urine Trace (Negative); Clarity Clear (Clear); Glucose, Urine (Dipstick) Normal (Negative); Ketone, Urine Negative (Negative); Leukocyte 25 Leu/uL (Negative); Nitrite Negative (Negative); Protein, Urine (Dipstick) Negative (Neg-Trace); Specific Gravity, Urine 1.013 (1.002-1.036); Squamous Epithelial 0-3 HPF (0-3); Urobilinogen Normal mg/dL (Less than 2)
[2022-04-01 22:10] LABS: Bacteria/HPF Rare-Few HPF (None Seen)
[2022-04-01 22:11] LABS: ALT (SGPT) Less than 7 U/L (8-55); AST (SGOT) 16 U/L (5-34); Albumin 3.9 g/dL (3.4-4.8); Alkaline Phosphatase 129 U/L (40-110); Anion Gap 15 mmol/L (10-20); BUN (Urea Nitrogen) 23 mg/dL (8.4-25.7); Bilirubin, Total 0.3 mg/dL (0.2-1.2); Calc. Creatinine Clearance 0 mL/min (70-130); Calcium 9.1 mg/dL (7.8-10.44); Carbon Dioxide 26 mmol/L (23-31); Chloride 99 mmol/L (98-107); Estimated GFR 74; Globulin 2.7 g/dL (2.4-3.5); Glucose 109 mg/dL (83-110); Potassium 3.7 mmol/L (3.5-5.1); Protein, Total 6.6 g/dL (5.8-8.1); Sodium 136 mmol/L (136-145)
[2022-04-01 22:32] LABS: CKMB 2.2 ng/mL (0-6.6)
[2022-04-01] MEDS ORDERED: Aspirin Chewable 81 MG TAB ONE (22:40)
[2022-04-02] MEDS ORDERED: Acetaminophen 325 MG TAB PO PRN (00:35)
[2022-04-02] MEDS ORDERED: Ondansetron PF 4 MG/2 ML Vial IVP PRN (00:35)
[2022-04-02 01:22] LABS: Troponin I 0.192 ng/mL (< 0.028)
[2022-04-02] MEDS: cefTRIAXone\\ROCEPHIN 1 GM in Sodium Chloride 0.9% 100 ML IVPB SCH (02:30)
[2022-04-02 03:30] VITALS: BMI 28.8
[2022-04-02 04:44] LABS: #Eosinphils 0.2 thou/uL (0.0-0.7); #Lymphocytes 1.4 thou/uL (1.20-3.40); #Monocytes 0.6 thou/uL (0.11-0.59); #Neutrophils 5.7 thou/uL (1.40-6.50); %Basophils 0.3 % (0.0-1.0); %Lymphocytes 17.5 % (21.0-51.0); %Neutrophils 72.2 % (42.0-75.0); Hemoglobin 13.8 g/dL (14.0-18.0); Mean Corpuscular HGB CONC 33.7 g/dL (32.0-36.0); Mean Platelet Volume 6.3 fL (7.4-10.4); Platelet Count 164 thou/uL (130-400); RBC Distribution Width 11.8 % (11.5-14.5); Red Blood Cell (RBC) Count 4.05 mill/uL (4.70-6.10); White Blood Cell (WBC) Count 7.9 thou/uL (4.8-10.8)
[2022-04-02 05:05] LABS: Anion Gap 15 mmol/L (10-20); BUN (Urea Nitrogen) 23 mg/dL (8.4-25.7); Calc. Creatinine Clearance 87 mL/min (70-130); Calcium 8.7 mg/dL (7.8-10.44); Carbon Dioxide 24 mmol/L (23-31); Chloride 103 mmol/L (98-107); Estimated GFR 85; Glucose 117 mg/dL (83-110); Potassium 3.7 mmol/L (3.5-5.1); Sodium 138 mmol/L (136-145)
[2022-04-02 05:08] LABS: Troponin I 0.199 ng/mL (< 0.028)
[2022-04-02] MEDS: Acetaminophen/Codeine 30-300mg Tablet PO PRN (05:38)
[2022-04-02] MEDS ORDERED: Loratadine 10 MG TAB PO PRN (13:27)
[2022-04-02] MEDS ORDERED: Amantadine HCl 100 mg Capsule PO SCH (15:45)
[2022-04-02] MEDS: Atorvastatin Calcium 20 MG TAB PO SCH (20:03)
[2022-04-02] MEDS: Amantadine HCl 100 mg Capsule PO SCH (20:03)
[2022-04-02] MEDS: Polyethylene Glycol 3350 17 GM Packet PO SCH (20:04)
[2022-04-02] MEDS: Carbidopa/Levodopa 25-100 mg Tablet PO SCH (20:04)
[2022-04-02] MEDS: Venlafaxine HCl XR 75 MG CAP PO SCH (20:04)
[2022-04-02] MEDS: Primidone 50 MG TAB PO SCH (20:04)
[2022-04-02] MEDS: Enoxaparin Sodium 40 MG/0.4 ML SYRINGE SC SCH (20:04)
[2022-04-02] MEDS: Docusate 100 MG CAP PO SCH (20:04)
[2022-04-02] MEDS ORDERED: Non-Formulary Item 1 EACH (Losartan Potassium [Losartan Potassium] 50 MG Tablet) PO SCH (21:00)
[2022-04-03] MEDS: cefTRIAXone\\ROCEPHIN 1 GM in Sodium Chloride 0.9% 100 ML IVPB SCH (00:16)
[2022-04-03 05:31] LABS: Anion Gap 14 mmol/L (10-20); BUN (Urea Nitrogen) 22 mg/dL (8.4-25.7); Calc. Creatinine Clearance 77 mL/min (70-130); Calcium 9.1 mg/dL (7.8-10.44); Carbon Dioxide 22 mmol/L (23-31); Chloride 102 mmol/L (98-107); Estimated GFR 76; Glucose 111 mg/dL (83-110); Potassium 4.2 mmol/L (3.5-5.1); Sodium 134 mmol/L (136-145)
[2022-04-03] MEDS: Carbidopa/Levodopa 25-100 mg Tablet PO SCH ×3 (08:59→21:12)
[2022-04-03] MEDS ORDERED: Carbidopa/Levodopa 25-100 mg Tablet PO SCH (09:00)
[2022-04-03] MEDS: Finasteride 5 MG TAB PO SCH (09:00)
[2022-04-03] MEDS: Amantadine HCl 100 mg Capsule PO SCH ×3 (09:00→21:12)
[2022-04-03] MEDS: Fludrocortisone Acetate 0.1 MG TAB PO SCH (09:00)
[2022-04-03] MEDS: Lisinopril 10 MG TAB PO SCH (09:01)
[2022-04-03] MEDS: Polyethylene Glycol 3350 17 GM Packet PO SCH ×2 (09:01→21:13)
[2022-04-03] MEDS: Docusate 100 MG CAP PO SCH ×2 (09:01→21:12)
[2022-04-03] MEDS: Venlafaxine HCl XR 75 MG CAP PO SCH ×2 (09:01→21:13)
[2022-04-03] MEDS: Primidone 50 MG TAB PO SCH ×2 (09:01→21:13)
[2022-04-03] MEDS: Atorvastatin Calcium 20 MG TAB PO SCH (21:12)
[2022-04-03] MEDS: Enoxaparin Sodium 40 MG/0.4 ML SYRINGE SC SCH (21:13)
[2022-04-03] MEDS: Acetaminophen/Codeine 30-300mg Tablet PO PRN (21:13)
[2022-04-04] MEDS: cefTRIAXone\\ROCEPHIN 1 GM in Sodium Chloride 0.9% 100 ML IVPB SCH (00:36)
[2022-04-04] MEDS: Primidone 50 MG TAB PO SCH (08:59)
[2022-04-04] MEDS: Docusate 100 MG CAP PO SCH (08:59)
[2022-04-04] MEDS: Amantadine HCl 100 mg Capsule PO SCH ×2 (08:59→14:12)
[2022-04-04] MEDS: Acetaminophen/Codeine 30-300mg Tablet PO PRN (09:00)
[2022-04-04] MEDS: Finasteride 5 MG TAB PO SCH (09:01)
[2022-04-04] MEDS: Carbidopa/Levodopa 25-100 mg Tablet PO SCH ×2 (09:01→14:12)
[2022-04-04] MEDS: Fludrocortisone Acetate 0.1 MG TAB PO SCH (09:01)
[2022-04-04] MEDS: Lisinopril 10 MG TAB PO SCH (09:01)
[2022-04-04] MEDS: Venlafaxine HCl XR 75 MG CAP PO SCH (09:01)
[2022-04-04] MEDS: Polyethylene Glycol 3350 17 GM Packet PO SCH (09:02)
[2022-04-04 15:59] VITALS: BP 137/85; TEMP 97.9
[2022-04-05] MEDS ORDERED: Lisinopril 20 MG TAB PO SCH (09:00)
== END 2022-04-04 16:20 | DRG 552 ==
LOC: ERS 20:52 → 2NO 04-02 00:26 → OBSVTOIN 04-03 10:04
PROVIDERS: ADMIT Student in an Organized Health Care Education/Training Program; ATTEND Student in an Organized Health Care Education/Training Program
DX: S22.079A Unspecified fracture of T9-T10 vertebra, initial encounter for closed fracture (principal); S32.010A Wedge compression fracture of first lumbar vertebra, initial encounter for closed fracture; N39.0 Urinary tract infection, site not specified; Z66 Do not resuscitate; Z20.822 Contact with and (suspected) exposure to COVID-19; I25.10 Atherosclerotic heart disease of native coronary artery without angina pectoris; I10 Essential (primary) hypertension; E78.5 Hyperlipidemia, unspecified; I49.5 Sick sinus syndrome; G20 Parkinson's disease; N40.0 Benign prostatic hyperplasia without lower urinary tract symptoms; K21.9 Gastro-esophageal reflux disease without esophagitis; M10.9 Gout, unspecified; F32.A Depression, unspecified; R77.8 Other specified abnormalities of plasma proteins; W05.0XXA Fall from non-moving wheelchair, initial encounter; Z95.0 Presence of cardiac pacemaker; Z79.899 Other long term (current) drug therapy; Z79.01 Long term (current) use of anticoagulants; Z87.891 Personal history of nicotine dependence; Z99.3 Dependence on wheelchair
CPT/HCPCS: 36415; 70450; 72125; 72128; 72131; 72170; 80048; 80053; 81003; 81015; 82553; 83735; 84439; 84443; 84484; 85025; 87077; 87086; 87186; 93005; 96374; 96376; G0378; J0696; J1650; J3490; U0003; U0005

== ENCOUNTER 2022-05-08 12:52 | Outpatient (CLI) | payer MEDICARE, BC | END 2022-05-08 12:53 | disposition home or self-care (01) | LOC: TBSIIMAG 12:52 | PROVIDERS: ATTEND Neurological Surgery | DX: S32.011A Stable burst fracture of first lumbar vertebra, initial encounter for closed fracture (principal); S22.079A Unspecified fracture of T9-T10 vertebra, initial encounter for closed fracture | CPT/HCPCS: 72070; 72100 ==